=== PATIENT | female | born 1930 | race Caucasian/White ===

== ENCOUNTER 2017-10-30 09:53 | Outpatient (RCR) | payer MEDICARE, OTHER | END 2017-10-31 | LOC: PT 09:53 | PROVIDERS: ATTEND Specialist | DX: S39.012A Strain of muscle, fascia and tendon of lower back, initial encounter (principal) | CPT/HCPCS: 97010; 97110 ×5; 97161; G8978; G8979 ==

== ENCOUNTER 2017-11-16 09:52 | Outpatient (RCR) | payer MEDICARE | END 2017-12-01 | LOC: PT 09:52 | PROVIDERS: ATTEND Specialist | DX: S39.012A Strain of muscle, fascia and tendon of lower back, initial encounter (principal); M62.81 Muscle weakness (generalized); R26.2 Difficulty in walking, not elsewhere classified | CPT/HCPCS: 97010; 97110 ×5; 97139; G8978; G8979 ==